=== PATIENT | female | born 1985 | race Caucasian/White ===

== ENCOUNTER 2017-08-20 18:07 | Emergency (ER) | payer MEDICAID ==
[~2017-08-20] VITALS: Ht 152.4 cm; Wt 83.0 kg
[2017-08-20 22:54] VITALS: BP 118/72
== END 2017-08-20 22:54 | disposition home or self-care (01) ==
LOC: ED 18:07
DX: R51 Headache (principal); R03.0 Elevated blood-pressure reading, without diagnosis of hypertension